=== PATIENT | female | born 1970 | race Caucasian/White ===

== ENCOUNTER 2016-05-20 14:06 | Observation (INO) | payer BC ==
[2016-05-18 13:30] LABS: HEMATOCRIT 36.5 % (36.0-48.0); HEMOGLOBIN 12.1 g/dL (12.0-16.0)
--- NOTE | ~2016-05-20 | OP ---
Record Of Operation [facility] [address] [place]. [address] NAME: DANIEL CANTU : 68 STATUS : DIS IN PAT#: [id number] AGE: 46 ADM/REG DATE : 05/20/16 MR#: [id number] REPORT SERV DATE: 05/23/16 DICTATED BY: YOVANNY VAZQUEZ DATE: 05/20/16 REPORT STATUS : Draft TRANSCRIBED BY: MODL DATE: 05/20/16 DATE OF PROCEDURE: 05/20/2016 PREOPERATIVE DIAGNOSIS: Left ankle bimalleolar fracture, displaced with subluxation. POSTOPERATIVE DIAGNOSIS: Left ankle bimalleolar fracture, displaced with subluxation. PROCEDURE: Open reduction and internal fixation of left bimalleolar ankle fracture to lateral and posterior malleolus. SURGEON: Yovanny Vazquez M.D. STOCKROOM KEEPER: Ashutosh James. ANESTHESIA: General anesthetic. ESTIMATED BLOOD LOSS: 100 mL. FLUID: 1000 mL crystalloid. TOURNIQUET TIME: Zero. DRAINS: None. COMPLICATIONS: None. INDICATION: A 46-year-old patient presented in the office after being seen in the emergency department at [facility] for evaluation after a fall, down some steps with injury to her left ankle. She had a posterior sublux lateral and posterior malleolar fracture with displacement. She was placed in a posterior splint with side plates and referred out with instructions for ice elevation and weightbearing protection. She was seen in the office. Radiographs were reviewed with the patient and recommendation was made for operative treatment for open reduction and internal fixation. The patient had the procedure, its inherent risks and complications, potential outcomes discussed with her and she voiced understanding and agreed to proceed. She was identified in the preop holding area. Operative extremity was marked with yes. DESCRIPTION OF PROCEDURE: The patient was taken to the operative suite and placed in a supine position on the operating table. General anesthetic was successfully administered. The patient's left lower extremity was then prepped and draped to expose the leg circumferentially on the left side from the knee distalward with a proximal tourniquet in place, which was not inflated. A time-out was called. She was identified, correct operative extremity identified, verification of antibiotic 2 g Ancef administration. The patient had lateral incision placed over the lateral malleolus through the skin and subcutaneous tissues. Hemostasis was achieved using electrocautery. The fracture was then reduced using a lion-jaw reduction clamps. It was checked under mini-fluoroscopy and deemed Record Of Operation [facility] [address] [place]. [address] NAME: DANIEL CANTU : 68 STATUS : DIS IN PAT#: [id number] AGE: 46 ADM/REG DATE : 05/20/16 MR#: [id number] REPORT SERV DATE: 05/23/16 DICTATED BY: YOVANNY VAZQUEZ DATE: 05/20/16 REPORT STATUS : Draft TRANSCRIBED BY: JIM DATE: 05/20/16 appropriate. A lateral Gary locking plate was then placed with proximal nonlocking screws and distal locking screws. Cerclage #1 Vicryl suture was then placed from the fibula for a long proximal posterior fibular spike on the distal fragment. Three sutures were placed and tied. Attention was then turned to the posterior malleolus, where the foot was dorsiflexed and anterior displacement of the calcaneus. Posterior displacement of the tibia was performed. A clamp was then placed utilizing a lateral incision, anterior incision through the skin, dissecting down bluntly to the tibia taking care to preserve the superficial vessels and nerve. A clamp was placed into place and tightened and fluoroscopy was used to ascertain the reduction. It was deemed appropriate. Interfragment screws were then placed x2. Guidewire was placed. AP per direction measuring directly off the guidewire was then. The appropriate screw was called for. A drill was placed over the guidewire removing the drill and leaving the guidewire in place. Appropriate screws were placed. Two screws were then placed and tightened. The clamp was then removed. Fluoroscopy was utilized to ensure maintenance of reduction, which was verified. The incision was then irrigated with copious amounts of saline and closed in multiple layer closure. The first layer of subcutaneous closure anterior incision with 2-0 Vicryl suture and skin with a running 3-0 Monocryl suture. Lateral incision was closed using #1 and 2-0 superficial and running 3-0 Monocryl suture. Mastisol and Steri-Strips were used to approximate each of the incisions with Xeroform gauze, sterile dry gauze, sterile cast padding, Missael wrap, and placed the patient in a boot walker. The patient was then awakened, extubated, transferred to the [facility], taken to the postanesthesia care unit in satisfactory condition having tolerated the procedure well. Sponge and needle counts were correct at the conclusion of the procedure. Intraoperative fluoroscopy pictures of the final reduction were kept for permanent records. SHERRY/JACKELINL Yovanny Vazquez M.D. / [id number] CC: Yovanny Vazquez M.D.
[~2016-05-20 14:06] MED LIST: NORCO1 TAB PO
[2016-05-21] MEDS ORDERED: ASAB PO (16:20)
[2016-05-21] MEDS ORDERED: DIL4TAB PO (16:22)
== END 2016-05-21 17:21 | disposition home or self-care (01) ==
LOC: SDC 14:06 → 3SO 20:06
PROVIDERS: Orthopaedic Surgery
PROC: 0QHH04Z Insertion of Internal Fixation Device into Left Tibia, Open Approach (ICD-10-PCS; 2016-05-20)
PROC: 0QSM04Z Reposition Left Tarsal with Internal Fixation Device, Open Approach (ICD-10-PCS; principal; 2016-05-20 15:45)
DX: S82.842A Displaced bimalleolar fracture of left lower leg, initial encounter for closed fracture (principal)
CPT/HCPCS: 76000; 84703; 85014; 85018; 96374; 96375; 96376; A9270-GY; C1713; C1769; G0378; J0690; J1170; J2250; J2270; J2405; J2710; J3010